=== PATIENT | female | born 1995 | race Caucasian/White ===

== ENCOUNTER 2018-11-02 11:16 | Emergency (ER) | payer MEDICAID ==
[~2018-11-02] VITALS: Ht 147.3 cm; Wt 48.5 kg
[2018-11-02 11:31] VITALS: BP 118/78
== END 2018-11-02 12:34 | disposition home or self-care (01) ==
LOC: ED 11:16
DX: O26.891 Other specified pregnancy related conditions, first trimester (principal); M25.532 Pain in left wrist; M25.531 Pain in right wrist; M25.572 Pain in left ankle and joints of left foot; M79.644 Pain in right finger(s); M79.645 Pain in left finger(s); M25.562 Pain in left knee; M25.561 Pain in right knee; Z3A.10 10 weeks gestation of pregnancy

== ENCOUNTER 2019-03-06 13:17 | Emergency (ER) | payer MEDICAID ==
[~2019-03-06] VITALS: Ht 147.3 cm; Wt 54.9 kg
[2019-03-06 13:32] VITALS: Ht 147.3 cm; Wt 54.9 kg
[2019-03-06 16:19] LABS: BASOPHIL % 2.4 % (0-2); PLATELET COUNT 246 x10^3mcL (130-400); RED CELL DISTRIBUTION WIDTH 15.7 % (11.5-14.5)
[2019-03-06 16:32] LABS: ALKALINE PHOSPHATASE 57 U/L (46-116); ALT/SGPT 15 U/L (14-59); AST/SGOT 25 U/L (15-37); CALCIUM 8.5 mg/dL (8.5-10.1); CARBON DIOXIDE 23.1 mmol/L (21-32); CHLORIDE SERUM 104 mmol/L (98-107); CREATININE SERUM 0.4 mg/dL (0.6-1.0); GFR1 > 60 mL/min; GLUCOSE SERUM 77 mg/dL (74-106); POTASSIUM SERUM 3.8 mmol/L (3.5-5.1); SODIUM SERUM 138 mmol/L (136-145); TOTAL PROTEIN, SERUM 6.8 g/dL (6.4-8.2)
[2019-03-06 16:33] LABS: ALBUMIN 2.9 g/dL (3.4-5.0)
[2019-03-06 20:26] VITALS: BP 97/47
== END 2019-03-06 20:26 | disposition short-term general hospital (02) ==
LOC: ED 13:17
PROVIDERS: Emergency Medicine
DX: O9A.213 Injury, poisoning and certain other consequences of external causes complicating pregnancy, third trimester (principal); Z3A.28 28 weeks gestation of pregnancy; V47.5XXA Car driver injured in collision with fixed or stationary object in traffic accident, initial encounter; Y93.I9 Activity, other involving external motion; Y92.413 State road as the place of occurrence of the external cause; Y99.8 Other external cause status
CPT/HCPCS: 36415; 82962; Q0092